=== PATIENT | male | born 1940 | race Caucasian/White ===

== ENCOUNTER 2022-06-06 09:56 | Emergency (ER) | payer MEDICARE, MEDICAID, SELFPAY ==
[2022-06-06] VITALS (7 sets, daily range): BP systolic 121–143; BP diastolic 81–95; PULSE 101–116; RESP 19–30; TEMP 36.1; O2SAT 91–97; BMI 31.3
--- NOTE | ~2022-06-06 | XR_ITS ---
EXAMINATION: XR CHEST CLINICAL INFORMATION: Cough, shortness of breath COMPARISON: None TECHNIQUE: 2 views of the chest were obtained. FINDINGS: Diffuse interstitial prominence with patchy areas of airspace opacity particularly at the lung bases. Small bilateral pleural effusions are likely present. Cardiac silhouette prominent. Tortuous aorta. Degenerative changes of the shoulders and spine. XR/XR chest 2V IMPRESSION: Diffuse interstitial prominence with additional patchy areas of airspace opacity. The appearance is nonspecific but most suggestive of multifocal infection, for example interstitial pneumonitis with superimposed areas of more focal pneumonitis/pneumonia. Interstitial and alveolar pulmonary edema with pleural effusions could give this appearance as well.
--- NOTE | 2022-06-06 10:01 | ECG_ITS ---
Test Reason : chest heaviness Blood Pressure : / mmHG Vent. Rate : 102 BPM Atrial Rate : 102 BPM P-R Int : 160 ms QRS Dur : 182 ms QT Int : 402 ms P-R-T Axes : 000 -13 160 degrees QTc Int : 523 ms Sinus tachycardia Left bundle branch block Abnormal ECG No previous ECGs available Referred By: Generic ED Physician Electronically Signed By:JOSE L MAJANO MD
--- NOTE | 2022-06-06 10:37 | ED.CHESTPAIN ---
HPI - Chest Pain General Chief Complaint: Upper Respiratory Symptoms Stated Complaint: Difficulty breathing/Chest pain Time Seen by Provider: 06/06/22 10:23 Source: patient Mode of arrival: ambulatory History of Present Illness HPI narrative: 81-year-old male with presentation of chest pressure for 2 days the became worse last night associated with dyspnea on exertion, shortness of breath but denies any associated fever, chills, GI or symptoms. Patient is not take any medications and has not seen a doctor ?for years?. Related Data Allergies Allergy/AdvReac Type Severity Reaction Status Date / Time Unable to Assess Allergy Verified 06/06/22 10:35 Review of Systems Review of Systems: Pertinent positives and negatives as stated in HPI 10 point review of systems is otherwise negative. [facility] Past Medical History Source: nursing notes reviewed Social History Social History Advance Directives: Yes Advance Directives Information Provided: Yes Advance Directives on File: No Physical Exam Vital Signs: Vital Signs: Last Vital Signs Temp 97 F 06/06/22 09:57 Pulse 107 H 06/06/22 12:23 Resp 26 H 06/06/22 12:23 BP 143/89 H 06/06/22 12:23 Pulse Ox 93 06/06/22 12:23 O2 Del Method 06/06/22 12:23 O2 Flow Rate 4 06/06/22 12:23 BMI result Body Mass Index 31.3 VITAL SIGNS: Reviewed. GENERAL: Well developed, well nourished, in no acute distress. HEAD: Normocephalic/atraumatic EYES: PERRLA, EOMI EARS: Ext canals without abnormality OROPHARYNX: no oral lesions noted, posterior pharynx clear LUNGS: Decreased breath sounds bibasilar, tachypneic but no wheeze or rhonchi SpO2<97> CARDIOVASCULAR: Regular rate and rhythm without noted murmurs, no JVD or lower extremity edema. ABDOMEN: Soft, non-tender, non-distended with bowel sounds. MUSCULOSKELETAL: No tenderness, deformities, or effusions noted on gross inspection. EXTREMITIES: No cyanosis, clubbing or edema. SKIN: Inspection of the skin reveals no rashes NEUROLOGIC: Alert and oriented x 4. Strength and sensation to light touch were grossly intact x 4. Course Course Course Narrative: 81-year-old male with history and clinical presentation highly suspicious for cardiac ischemia with suspected new left bundle branch block although this is unable to be supported. Patient is very dyspneic, was given aspirin, photographic hand developer will be performing bedside ultrasound in the meantime discussing case with Cardiology. 1135: 81-year-old male with review of all investigations consistent with new left bundle branch block, ongoing chest pain with significant pulmonary edema as well as noted pulmonary effusion on bedside ultrasound, elevated troponins as well as elevated BNP with KEYONA. Patient will be started on nitro as well as heparin drip and we have contacted [facility]. Patient informed of transfer. Nursing is aware that the nitro drip is being titrated for pain control NOT BLOOD PRESSURE. Reevaluation(s) Reevaluation #1: I discussed case with Cardiology who recommends following tropes and agrees with aspirin. Time: 10:42 Reevaluation #2: Dr Rae, photographic hand developer, do bedside ultrasound as my bedside ultrasound appears to demonstrate CHF exacerbation with right-sided pleural effusion and hypokinesis noted at the septal and apex. Time: 11:13 Reevaluation #3: Dr Rae also consulted for evaluation, recommends transfer and suspects that patient will likely need PCI. Also, recommends nitro drip with heparin. Time: 11:35 Additional Reevaluation(s): 1236: DR Nelson from [facility] accepts transfer to CCU. MDM - Chest Pain Lab Data Result diagrams: 06/06/22 10:42 06/06/22 10:41 Labs: Lab Results 06/06/22 06/06/22 06/06/22 Range/Units 10:04 10:41 10:41 WBC (4.8-10.8) X10*3/uL RBC (4.60-5.80) X10*6/uL Hgb (14.0-18.0) g/dl Hct (42.0-52.0) % MCV (80.0-98.0) fL MCH (27.0-33.0) pg MCHC (31.0-36.0) g/dl RDW (11.0-16.0) % Plt Count (160-400) X10*3/uL MPV (9.4-12.4) fL Immature Gran % (Auto) (0.0-0.4) % Neut % (Auto) (45-73) % Lymph % (Auto) (20-40) % Nelson % (Auto) (2-11) % Eos % (Auto) (0-4) % Baso % (Auto) (0-2) % Lymph # (Auto) (1.2-4.9) X10*3/uL Nelson # (Auto) (0.1-1.2) X10*3/uL Eos # (Auto) (0.0-0.4) X10*3/uL Baso # (Auto) (0.0-0.2) X10*3/uL Abs Immat Gran (auto) (0.00-0.03) X10*3/uL Absolute Neuts (auto) (2.0-8.3) x10*3/uL Absolute Nucleated RBC (0.0-0.012) X10*3/uL Nucleated RBC % (auto) (0.0-0.2) /100WBC PT 11.6 (10.0-13.1) SEC INR 1.0 (0.9-1.1) APTT 29.7 (26.0-36.4) SEC Sodium 140 (135-145) mmol/L Potassium 4.4 (3.3-5.1) mmol/L Chloride 102 (96-108) mmol/L Carbon Dioxide 22 (22-29) mmol/L Anion Gap 20 (12-20) BUN 22 H (9-16) mg/dL Creatinine 1.99 H (0.5-1.4) mg/dL Estim Creat Clear Calc 34.3 Estimated GFR 32 Random Glucose 275 H (60-115) mg/dL Calcium 10.1 (8.4-10.2) mg/dL Total Bilirubin 0.8 (0.0-1.0) mg/dL AST 44 H (5-37) U/L ALT 53 H (0-40) U/L Alkaline Phosphatase 75 (39-117) U/L Troponin I High Sens (<3.5-35.0) ng/L B-Natriuretic Peptide (<100) pg/mL Total Protein 7.7 (6.5-8.0) g/dL Albumin 4.5 (3.5-5.0) g/dL Influenza Type A (PCR) NEGATIVE (Negative) Influenza Type B (PCR) NEGATIVE (Negative) RSV RNA Qual (PCR) NEGATIVE (Negative) SARS-CoV-2 RNA (RT-PCR) NEGATIVE (Negative) 06/06/22 06/06/22 Range/Units 10:41 10:42 WBC 13.2 H (4.8-10.8) X10*3/uL RBC 5.35 (4.60-5.80) X10*6/uL Hgb 16.6 (14.0-18.0) g/dl Hct 49.7 (42.0-52.0) % MCV 92.9 (80.0-98.0) fL MCH 31.0 (27.0-33.0) pg MCHC 33.4 (31.0-36.0) g/dl RDW 13.5 (11.0-16.0) % Plt Count 282 (160-400) X10*3/uL MPV 10.1 (9.4-12.4) fL Immature Gran % (Auto) 0.3 (0.0-0.4) % Neut % (Auto) 85.2 H (45-73) % Lymph % (Auto) 9.9 L (20-40) % Nelson % (Auto) 3.9 (2-11) % Eos % (Auto) 0.2 (0-4) % Baso % (Auto) 0.5 (0-2) % Lymph # (Auto) 1.3 (1.2-4.9) X10*3/uL Nelson # (Auto) 0.5 (0.1-1.2) X10*3/uL Eos # (Auto) 0.0 (0.0-0.4) X10*3/uL Baso # (Auto) 0.1 (0.0-0.2) X10*3/uL Abs Immat Gran (auto) 0.04 H (0.00-0.03) X10*3/uL Absolute Neuts (auto) 11.2 H (2.0-8.3) x10*3/uL Absolute Nucleated RBC 0.000 (0.0-0.012) X10*3/uL Nucleated RBC % (auto) 0.0 (0.0-0.2) /100WBC PT (10.0-13.1) SEC INR (0.9-1.1) APTT (26.0-36.4) SEC Sodium (135-145) mmol/L Potassium (3.3-5.1) mmol/L Chloride (96-108) mmol/L Carbon Dioxide (22-29) mmol/L Anion Gap (12-20) BUN (9-16) mg/dL Creatinine (0.5-1.4) mg/dL Estim Creat Clear Calc Estimated GFR Random Glucose (60-115) mg/dL Calcium (8.4-10.2) mg/dL Total Bilirubin (0.0-1.0) mg/dL AST (5-37) U/L ALT (0-40) U/L Alkaline Phosphatase (39-117) U/L Troponin I High Sens 773.8 H* (<3.5-35.0) ng/L B-Natriuretic Peptide 910 H (<100) pg/mL Total Protein (6.5-8.0) g/dL Albumin (3.5-5.0) g/dL Influenza Type A (PCR) (Negative) Influenza Type B (PCR) (Negative) RSV RNA Qual (PCR) (Negative) SARS-CoV-2 RNA (RT-PCR) (Negative) Critical Care Time Critical Care Time Critical Care Time: Yes Total Critical Care Time: 45 Attestation: I personally attest to this time spent taking care of the patient. Discharge Plan Discharge Clinical Impression: LBBB (left bundle branch block), KEYONA (acute kidney injury), CHF exacerbation, Non-ST elevation AL (NSTEMI) Patient Disposition: er [facility] Transfer Details: NSTEMI, ongoing chest pain, higher level of care
[2022-06-06] MEDS: Aspirin 81 MG TAB.CHEW 324 MG PO (10:44)
[2022-06-06 10:47] LABS: Influenza A PCR NEGATIVE (Negative); Influenza B PCR NEGATIVE (Negative); Resp Syncy Virus RNA Qual PCR NEGATIVE (Negative); SARS COV2 PCR INHOUSE NEGATIVE (Negative)
[2022-06-06 10:50] LABS: MANUAL DIFF FLAG NO
[2022-06-06 10:51] LABS: Basophils Absolute Auto 0.1 X10*3/uL (0.0-0.2); Basophils Percent Auto 0.5 % (0-2); Eosinophils Percent Auto 0.2 % (0-4); Hematocrit 49.7 % (42.0-52.0); Hemoglobin 16.6 g/dl (14.0-18.0); Imm Gran Abs Auto 0.04 X10*3/uL (0.00-0.03); Imm Gran Pct Auto 0.3 % (0.0-0.4); Lymphocytes Absolute Auto 1.3 X10*3/uL (1.2-4.9); Lymphocytes Percent Auto 9.9 % (20-40); Mean Corpuscular HGB Conc 33.4 g/dl (31.0-36.0); Mean Corpuscular Volume 92.9 fL (80.0-98.0); Mean Platelet Volume 10.1 fL (9.4-12.4); Monocytes Absolute Auto 0.5 X10*3/uL (0.1-1.2); Monocytes Percent Auto 3.9 % (2-11); Neutrophils Absolute Auto 11.2 x10*3/uL (2.0-8.3); Neutrophils Percent Auto 85.2 % (45-73); Platelet Count 282 X10*3/uL (160-400); Red Blood Count 5.35 X10*6/uL (4.60-5.80); Red Cell Distribution Width 13.5 % (11.0-16.0); White Blood Count 13.2 X10*3/uL (4.8-10.8)
[2022-06-06 11:04] LABS: Prothrombin Time 11.6 SEC (10.0-13.1)
[2022-06-06 11:07] LABS: Alanine Aminotransferase 53 U/L (0-40); Albumin Level 4.5 g/dL (3.5-5.0); Alkaline Phosphatase 75 U/L (39-117); Anion Gap 20 (12-20); Aspartate Amino Transferase 44 U/L (5-37); Bilirubin Total 0.8 mg/dL (0.0-1.0); Blood Urea Nitrogen 22 mg/dL (9-16); Calcium 10.1 mg/dL (8.4-10.2); Carbon Dioxide 22 mmol/L (22-29); Chloride 102 mmol/L (96-108); Creatinine Clr Calc Pharmacy 34.3; Estimated Glomerular Filt Rate 32; Glucose Random 275 mg/dL (60-115); Partial Thromboplastin Time 29.7 SEC (26.0-36.4); Potassium 4.4 mmol/L (3.3-5.1); Sodium 140 mmol/L (135-145); Total Protein 7.7 g/dL (6.5-8.0)
[2022-06-06 11:18] LABS: B Type Natriuretic Peptide 910 pg/mL (<100); Troponin-I High Sensitivity 773.8 ng/L (<3.5-35.0)
--- NOTE | 2022-06-06 11:28 | PC.NURSE ---
@ 11:27AM DR WILLAMS REQUEST CALL OUT TO [facility] PT TX LINE MYLES ANSWERS AND ASKS FOR TX DIAGNOSIS DR WILLAMS TAKES OVER CALL @ THIS TIME
[2022-06-06] MEDS: Furosemide 20 MG/2 ML VIAL IVPUSH ×2 (11:30→12:56)
--- NOTE | 2022-06-06 11:58 | P.CONCC_ITS ---
History of Present Illness Data of Consult Service Date: 06/06/22 Requesting physician: Florina Simon Primary Care Provider: None Physician HPI Reason for consult: ischemic pulmonary edema 81-year-old male on no medication 2 days of continuous chest pressure with increasing shortness of breath and noted to be in acute hypoxemic respiratory failure with what appears to be pulmonary edema and a positive troponin high sensitivity at 770 with mild transaminitis as well currently on oxygen by nasal cannula was given 20 mg of Lasix no improvement yet and is EKG shows sinus tachycardia with a left bundle branch block but even dated age and bedside echo demonstrating dilated diffusely hypokinetic left ventricle consistent with congestive cardiomyopathy ejection fraction 25% with septal paradox due to the left bundle branch block and no significant mitral valvular disease and there is mild aortic valvular sclerosis but no stenosis and no pericardial effusion chest x-ray clearly consistent with acute pulmonary edema Review of Systems Review of Systems: no fever no productive cough Yes all other systems are reviewed and are negative PMFSH Social History Social History Advance Directives: Yes Advance Directives Information Provided: Yes Advance Directives on File: No Meds Allergies Allergy/AdvReac Type Severity Reaction Status Date / Time Unable to Assess Allergy Verified 06/06/22 10:35 Active Medications: Current Medications Heparin Sodium (Porcine) (Heparin Sodium,Porcine 5,000 Unit/Ml Vial) 4,000 unit 40 unit/kg (4000 unit) IVPUSH PROTOCOL BOLUS PRN; Protocol PRN Reason: 40 unit/kg - Heparin Protocol Heparin Sodium (Porcine) (Heparin Sodium,Porcine 5,000 Unit/Ml Vial) 7,900 unit 80 unit/kg (7900 unit) IVPUSH PROTOCOL BOLUS PRN; Protocol PRN Reason: 80 unit/kg - Heparin Protocol Heparin Sodium/Sodium Chloride (Heparin Sodium,Porcine/1/2ns) 25,000 unit in 2 50 mls @ 0 mls/hr IVCONT .Q0M JACY; Protocol Nitroglycerin/Dextrose (Nitroglycerin/D5w) 100 mg in 250 mls @ 0 mls/hr IVCONT .Q0M JACY; Protocol Physical Exam Vital Signs: Vital Signs: Last Vital Signs Temp 97 F 06/06/22 09:57 Pulse 102 H 06/06/22 10:52 Resp 26 H 06/06/22 10:52 BP 122/81 06/06/22 10:52 Pulse Ox 94 06/06/22 10:52 O2 Del Method 06/06/22 10:52 O2 Flow Rate 4 06/06/22 10:52 BMI result Body Mass Index 31.3 awake alert an oriented nonfocal neurologically and in moderate respiratory distress mild expiratory wheeze bilaterally bedside echo for cardiac exam shows diffuse myopathy 25% ejection fraction with septal paradox from left bundle branch block no primary valve or pericardial disease abdomen benign soft no organome lexi peripherally warm well perfused no acrocyanosis no edema Results Labs CBC & Chem 7: 06/06/22 10:42 06/06/22 10:41 Labs: Short CBC 06/06/22 Range/Units 10:42 WBC 13.2 H (4.8-10.8) X10*3/uL Hgb 16.6 (14.0-18.0) g/dl Hct 49.7 (42.0-52.0) % Plt Count 282 (160-400) X10*3/uL BMP 06/06/22 10:41 Sodium 140 Potassium 4.4 Chloride 102 Carbon Dioxide 22 BUN 22 H Creatinine 1.99 H Calcium 10.1 Liver Function 06/06/22 Range/Units 10:41 Total Bilirubin 0.8 (0.0-1.0) mg/dL AST 44 H (5-37) U/L ALT 53 H (0-40) U/L Alkaline Phosphatase 75 (39-117) U/L Albumin 4.5 (3.5-5.0) g/dL Assessment and Plan (1) Acute cardiogenic pulmonary edema: Status: Acute (2) Acute coronary syndrome with high troponin: Status: Acute (3) LBBB (left bundle branch block): Status: Acute (4) KEYONA (acute kidney injury): Status: Acute Plan which treat this obviously as an unstable ischemia until proven otherwise needs aspirin 325 mg acute high-dose heparin loading dose and drip and would probably start IV nitroglycerin for his acute pulmonary edema and the additional antiplatelet benefit and transfer to tertiary institution for cardiac catheterization
[2022-06-06] MEDS: Heparin Sodium,Porcine 5,000 UNIT/ML VIAL 4000 UNIT IVPUSH (12:10)
--- NOTE | 2022-06-06 12:13 | PC.NURSE ---
@12:[address] WILLAMS REQUESTS CALL BACK TO [facility] PT TX LINE SHE HAS NOT HAD ANY CALL BACK ANSWERS AND ASSURES THAT A 2ND PAGE HAS BEEN SENT RECENTLY
--- NOTE | 2022-06-06 12:22 | PC.NURSE ---
@ 12:22PM EDMOND FROM [facility] PT TX LINE CALLS US BACK WITH DR BARKER ON THE LINE FOR DR ЕКАТЕРИНА WILLAMS TAKES OVER CALL RIGHT AWAY
[2022-06-06] MEDS: Nitroglycerin/D5W 100 MG/250 ML INFUS..BTL IVCONT (12:24)
[2022-06-06] MEDS: Heparin Sodium,Porcine/1/2NS 25,000 UNIT/250 ML IV.SOLN 10 UNIT IVCONT (12:39)
--- NOTE | 2022-06-06 13:20 | ECG_ITS ---
Test Reason : SOB Blood Pressure : / mmHG Vent. Rate : 106 BPM Atrial Rate : 000 BPM P-R Int : 000 ms QRS Dur : 162 ms QT Int : 378 ms P-R-T Axes : 000 -09 135 degrees QTc Int : 502 ms Poor data quality Normal sinus rhythm Left bundle branch block Abnormal ECG When compared with ECG of 06-JUN-2022 10:03, No significant changes seen Referred By: Florina Simon Electronically Signed By:JOSE L MAJANO MD
--- NOTE | 2022-06-06 13:25 | PC.NURSE ---
Report given to DIAZ Watters. pt will be transferred to [facility] via ambulance. Pt aware of plan. at bedside.
--- NOTE | 2022-06-06 13:26 | PC.NURSE ---
patient became very diaphoretic, cold to touch although pt states he doesnt feel cold, provider notified, nitro drop stopped per provider request, wood chopper intact, repeat ekg performed, call within reach, will continue to monitor
--- NOTE | 2022-06-06 13:30 | PC.NURSE ---
pt feels as if he is unable to catch his breath, provider at bedside
[2022-06-06] MEDS: Digoxin 0.5 MG/2 ML AMPUL IVPUSH (13:44)
--- NOTE | 2022-06-06 13:50 | PC.NURSE ---
pts states he feels much better and his RR has slowed some, pt is less diaphoretic, pt was medicated per order, EMS here to transport patient, call cook within reach, will continue to monitor.
== END 2022-06-06 13:59 | disposition short-term general hospital (02) ==
PROVIDERS: Emergency Provider Student in an Organized Health Care Education/Training Program
DX: I21.4 Non-ST elevation (NSTEMI) myocardial infarction (principal); I44.7 Left bundle-branch block, unspecified; R05.9 Cough, unspecified; R06.02 Shortness of breath; R07.89 Other chest pain; Z20.822 Contact with and (suspected) exposure to COVID-19; Z79.899 Other long term (current) drug therapy
CPT/HCPCS: 0241U; 36415; 71046; 80053; 83880; 84484; 85025; 85610; 85730; 93005; 96365; 96375; 96376; 99285; J1160; J1940